=== PATIENT | female | born 1950 | race Caucasian/White ===

== ENCOUNTER 2019-11-09 09:27 | Observation (INO) | payer MEDICARE ==
[2019-11-09] MEDS ORDERED: NITROGLYCERIN SL TABS 0.4 MG TAB SUBLINGUAL STA (09:31)
--- NOTE | 2019-11-09 09:34 | ED ---
Chest Pain HPI - General Stated Complaint: Chest Pain Time Seen by Provider: 11/09/19 09:27 Source: patient, RN notes reviewed - History of Present Illness Initial Comments: This is a 69-year-old female with a history of PACs and PVCs no other known cardiac disease also a history of a malformation the right subclavian vein who states she had the onset around 7 AM this morning of 4/10 retrosternal chest pain with some radiation to the left arm. The patient states it currently is around 2/10 she did take 324 mg aspirin. She did go to [facility]. He was sent here by EMS for further evaluation. She was also EKG have frequent PVCs. She states she has some exertional dyspnea. No fevers chills nausea vomiting sweats. MD Complaint: chest pain - Related Data Allergies Allergy/AdvReac Type Severity Reaction Status Date / Time clarithromycin [From Biaxin] Allergy Nausea Verified 11/09/19 09:34 Sulfa (Sulfonamide Allergy Unknown Verified 11/09/19 09:34 Antibiotics) Review of Systems ROS Statement: Those systems with pertinent positive or pertinent negative responses have been documented in the HPI. ROS Other: All systems not noted in ROS Statement are negative. General Exam - General Exam Comments Initial Comments: This is a well-developed well-nourished awake alert oriented 3 female General appearance: alert, in no apparent distress Head exam: Present: atraumatic, normocephalic, normal inspection Eye exam: Present: normal appearance, PERRL, EOMI. Absent: scleral icterus, conjunctival injection, periorbital swelling ENT exam: Present: normal exam, mucous membranes moist Neck exam: Present: normal inspection. Absent: tenderness, meningismus, lymphadenopathy Respiratory exam: Present: normal lung sounds bilaterally. Absent: respiratory distress, wheezes, rales, rhonchi, stridor Cardiovascular Exam: Present: regular rate, normal rhythm, normal heart sounds. Absent: systolic murmur, diastolic murmur, rubs, gallop, clicks GI/Abdominal exam: Present: soft, normal bowel sounds. Absent: distended, tenderness, guarding, rebound, rigid Extremities exam: Present: normal inspection, full ROM, normal capillary refill. Absent: tenderness, pedal edema, joint swelling, calf tenderness Back exam: Present: normal inspection Neurological exam: Present: alert, oriented X3, CN II-XII intact Psychiatric exam: Present: normal affect, normal mood Skin exam: Present: warm, dry, intact, normal color. Absent: rash Course Vital Signs 11/09/19 11/09/19 09:29 10:25 Temperature 98.3 F Pulse Rate 74 65 Respiratory 18 18 Rate Blood Pressure 174/95 152/81 O2 Sat by Pulse 99 100 Oximetry Chest Pain MDM - MDM I did reevaluate patient several occasions she is currently pain-free. Nitroglycerin did help. She did state that the pain came back however briefly after nitro was given. We did a long discussion patient be admitted for inpatient evaluation of suspected new onset angina. I did discuss case with Dr. Montaño Critical Care Time Critical Care Time: Yes Total Critical Care Time: 31 Critical Care Time: 31 minutes of critical care time which includes initial presentation with history physical labs x-rays several reevaluation the patient response to therapy discussion with the patient regarding findings discussed with the admitting physician admission orders and documentation of the above Disposition Clinical Impression: Chest pain, Acute coronary syndrome Disposition: ADMITTED IP TO THIS [facility] Condition: Fair Referrals: None,Stated [Primary Care Provider] - 1-2 days
[2019-11-09 09:57] LABS: Basophils % (A) 1 %; Eosinophils # (A) 0.3 k/uL (0-0.7); Eosinophils % (A) 5 %; HCT 43.8 % (34.0-46.0); HGB 14.4 gm/dL (11.4-16.0); Lymphocytes # (A) 1.4 k/uL (1.0-4.8); Lymphocytes % (A) 22 %; MCH 30.3 pg (25.0-35.0); MCHC 32.8 g/dL (31.0-37.0); MCV 92.3 fL (80.0-100.0); Mean Platelet Volume 8.8; Monocytes # (A) 0.4 k/uL (0-1.0); Monocytes % (A) 7 %; Neutrophils # (A) 4.2 k/uL (1.3-7.7); Neutrophils % (A) 65 %; Platelet Count 189 k/uL (150-450); RBC 4.75 m/uL (3.80-5.40); RDW 12.6 % (11.5-15.5); WBC 6.4 k/uL (3.8-10.6)
--- NOTE | 2019-11-09 10:07 | XR ---
EXAMINATION TYPE: XR chest 2V DATE OF EXAM: 11/09/2019 COMPARISON: NONE HISTORY: Shortness of breath TECHNIQUE: Frontal and lateral views of the chest are obtained. FINDINGS: Scattered senescent parenchymal changes noted. Hyperinflation compatible with COPD. No evidence for infiltrate. No evidence for atelectasis. Heart size is stable. Mediastinal structures are stable and grossly unremarkable. No evidence for hilar prominence. Degenerative changes dorsal spine. IMPRESSION: 1. No evidence for acute pulmonary disease.
[2019-11-09 10:17] LABS: ALT 17 U/L (4-34); AST 29 U/L (14-36); African American GFR (CKD) >90 (>60 ml/min/1.73 sqM); Albumin 4.1 g/dL (3.5-5.0); Alkaline Phosphatase 65 U/L (38-126); Anion Gap 7 mmol/L; Blood Urea Nitrogen 16 mg/dL (7-17); Calcium 9.6 mg/dL (8.4-10.2); Carbon Dioxide 23 mmol/L (22-30); Chloride 108 mmol/L (98-107); Creatine Kinase 41 U/L (30-135); Glucose 169 mg/dL (74-99); Magnesium 1.8 mg/dL (1.6-2.3); Non-African American GFR(CKD) >90 (>60 ml/min/1.73 sqM); Potassium 4.2 mmol/L (3.5-5.1); Sodium 138 mmol/L (137-145); Total Bilirubin 0.4 mg/dL (0.2-1.3); Total Protein 6.4 g/dL (6.3-8.2)
[2019-11-09 10:18] LABS: D-Dimer 0.54 mg/L FEU (<0.60); Partial Thromboplastin Time 22.1 sec (22.0-30.0); Prothrombin Time 10.3 sec (9.0-12.0)
[2019-11-09] MEDS ORDERED: HEPARIN SODIUM,PORCINE 5,000 UNIT/ML 1 ML VIAL IV ONE (10:50)
[2019-11-09] MEDS ORDERED: NITROGLYCERIN SL TABS 0.4 MG TAB SUBLINGUAL PRN (10:50)
--- NOTE | 2019-11-09 10:56 | ED ---
Medical Decision Making - Lab Data Result diagrams: 11/09/19 09:42 11/09/19 09:42 Lab Results 11/09/19 11/09/19 11/09/19 Range/Units 09:42 09:42 09:42 WBC 6.4 (3.8-10.6) k/uL RBC 4.75 (3.80-5.40) m/uL Hgb 14.4 (11.4-16.0) gm/dL Hct 43.8 (34.0-46.0) % MCV 92.3 (80.0-100.0) fL MCH 30.3 (25.0-35.0) pg MCHC 32.8 (31.0-37.0) g/dL RDW 12.6 (11.5-15.5) % Plt Count 189 (150-450) k/uL Neutrophils % 65 % Lymphocytes % 22 % Monocytes % 7 % Eosinophils % 5 % Basophils % 1 % Neutrophils # 4.2 (1.3-7.7) k/uL Lymphocytes # 1.4 (1.0-4.8) k/uL Monocytes # 0.4 (0-1.0) k/uL Eosinophils # 0.3 (0-0.7) k/uL Basophils # 0.0 (0-0.2) k/uL PT 10.3 (9.0-12.0) sec INR 1.0 (<1.2) APTT 22.1 (22.0-30.0) sec D-Dimer 0.54 (<0.60) mg/L FEU Sodium 138 (137-145) mmol/L Potassium 4.2 (3.5-5.1) mmol/L Chloride 108 H (98-107) mmol/L Carbon Dioxide 23 (22-30) mmol/L Anion Gap 7 mmol/L BUN 16 (7-17) mg/dL Creatinine 0.47 L (0.52-1.04) mg/dL Est GFR (CKD-EPI)AfAm >90 (>60 ml/min/1.73 sqM) Est GFR (CKD-EPI)NonAf >90 (>60 ml/min/1.73 sqM) Glucose 169 H (74-99) mg/dL Calcium 9.6 (8.4-10.2) mg/dL Magnesium 1.8 (1.6-2.3) mg/dL Total Bilirubin 0.4 (0.2-1.3) mg/dL AST 29 (14-36) U/L ALT 17 (4-34) U/L Alkaline Phosphatase 65 (38-126) U/L Creatine Kinase 41 (30-135) U/L Troponin I (0.000-0.034) ng/mL NT-Pro-B Natriuret Pep pg/mL Total Protein 6.4 (6.3-8.2) g/dL Albumin 4.1 (3.5-5.0) g/dL 11/09/19 11/09/19 Range/Units 09:42 09:42 WBC (3.8-10.6) k/uL RBC (3.80-5.40) m/uL Hgb (11.4-16.0) gm/dL Hct (34.0-46.0) % MCV (80.0-100.0) fL MCH (25.0-35.0) pg MCHC (31.0-37.0) g/dL RDW (11.5-15.5) % Plt Count (150-450) k/uL Neutrophils % % Lymphocytes % % Monocytes % % Eosinophils % % Basophils % % Neutrophils # (1.3-7.7) k/uL Lymphocytes # (1.0-4.8) k/uL Monocytes # (0-1.0) k/uL Eosinophils # (0-0.7) k/uL Basophils # (0-0.2) k/uL PT (9.0-12.0) sec INR (<1.2) APTT (22.0-30.0) sec D-Dimer (<0.60) mg/L FEU Sodium (137-145) mmol/L Potassium (3.5-5.1) mmol/L Chloride (98-107) mmol/L Carbon Dioxide (22-30) mmol/L Anion Gap mmol/L BUN (7-17) mg/dL Creatinine (0.52-1.04) mg/dL Est GFR (CKD-EPI)AfAm (>60 ml/min/1.73 sqM) Est GFR (CKD-EPI)NonAf (>60 ml/min/1.73 sqM) Glucose (74-99) mg/dL Calcium (8.4-10.2) mg/dL Magnesium (1.6-2.3) mg/dL Total Bilirubin (0.2-1.3) mg/dL AST (14-36) U/L ALT (4-34) U/L Alkaline Phosphatase (38-126) U/L Creatine Kinase (30-135) U/L Troponin I <0.012 (0.000-0.034) ng/mL NT-Pro-B Natriuret Pep 527 pg/mL Total Protein (6.3-8.2) g/dL Albumin (3.5-5.0) g/dL Disposition Clinical Impression: Chest pain, Acute coronary syndrome, PVCs (premature ventricular contractions) Disposition: ADMITTED IP TO THIS HOSP Condition: Fair Referrals: None,Stated [Primary Care Provider] - 1-2 days
[2019-11-09] MEDS: HEPARIN SOD,PORK IN 0.45% NACL 25,000 UNIT in 0.45% NACL 1 250ML.BAG IV SCH (11:10)
[2019-11-09] MEDS ORDERED: PNEUMOCOCCAL VACC-PNEUMOVAX 23 25 MCG/0.5 ML VIAL IM ONE (11:54)
[2019-11-09] MEDS: NITROGLYCERIN OINT 1 INCH/GM PACKET TOPICAL SCH ×3 (12:54→23:58)
[2019-11-09] MEDS: INSULIN ASPART (NovoLOG) 100 UNIT/ML VIAL SQ SCH ×3 (12:58→20:51)
[2019-11-09 12:59] LABS: Glucose,Whole Blood 127 mg/dL (75-99)
[2019-11-09 13:19] LABS: Cholesterol 211 mg/dL (<200); HDL Cholesterol 41 mg/dL (40-60); LDL Cholesterol,Calculated 119 mg/dL (0-99); Triglycerides 253 mg/dL (<150)
--- NOTE | 2019-11-09 14:24 | CONS ---
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 Yesterday, she had some dizziness, she checked her pulse and there was some irregularity. She thought it is be a seizure. She took an extra beta donovan. This morning she had the same feeling and then she had some discomfort, left-sided chest radiating to the neck. The discomfort was mild and she was mildly dyspneic and went to [facility] and subsequently to the emergency room, was noted to have PVCs. The patient has a prior history of PVCs. She has underwent 2 cardiac catheterization most recently about 10 years ago that showed no evidence of obstructive coronary disease and no history of heart failure. She is more active physically, walks, has mild dyspnea with going up the stairs but not walking on a flat service. She has no chest discomfort with activity. She has occasional peripheral edema. No significant palpitation and no syncope. She has a remote history of smoking. She is nondiabetic. She has hypertension. She has borderline hyperlipidemia according to her. REVIEW OF SYSTEMS: RESPIRATORY SYSTEM: She has no documented history of asthma, emphysema or chronic bronchitis. GI SYSTEM: She has hemorrhoids with occasional bleeding. SYSTEM: No dysuria or hematuria. NERVOUS SYSTEM: No stroke or seizure. SOCIAL HISTORY: She does not consume caffeine and she is a nonsmoker. PHYSICAL EXAMINATION: A 69-year-old female, alert, oriented, in no apparent distress. Blood pressure running in the 140s/80 with a heart rate in the 60s. HEAD: Normocephalic. EYES: Sclerae nonicteric. NECK: Good upstroke, no bruit, no jugular venous distention. LUNGS: Clear to auscultation. HEART: Regular rate and rhythm, S1, S2. No S3 with systolic murmur at the base. No diastolic murmur, no rub. ABDOMEN: Soft, obese, nontender. Positive bowel sounds, no organomegaly. EXTREMITIES: No edema, intact distal pulses. LAB DATA: Revealed troponin less than 0.012. NT proBNP of 527, BUN and creatinine 16 and 0.47, hemoglobin 14.4. EKG revealed a sinus mechanism with normal axis and intervals with frequent ventricular ectopic activity. Chest x-ray shows no evidence of infiltrate. IMPRESSION: 1. Chest discomfort of unclear etiology, could be related to angina pectoris. Patient has no prior documented history of coronary artery disease. 2. History of arrhythmia with PACs and PVCs in the past. 3. History of hypertension. 4. Borderline hyperlipidemia. RECOMMENDATION: I will obtain serial enzymes and EKG. I will obtain an echocardiogram with Doppler. Depending on her findings, she may require cardiac catheterization. I have discussed with her those finding and recommendation. She is in full understanding and agreement. Thank you for this consult. Will follow with you. VERONICA / IJN: [id number] /
[2019-11-09] MEDS ORDERED: NALOXONE 0.4 MG/ML 1 ML VIAL IV PRN (15:30)
--- NOTE | 2019-11-09 15:43 | P.HPIM ---
History of Present Illness H&P Date: 11/09/19 69-year-old female with PMH of diet-controlled diabetes mellitus and hypertension presents to the ED for lightheadedness and chest pain. Patient states that she had one episode of diaphoresis yesterday that spontaneously resolved. This morning, she was doing laundry when she "felt weird". Patient states that she felt some skipped beats and started feeling lightheadedness, diaphoretic along with chest pain that was radiating to the left arm. This is also associated with some shortness of breath. Patient states that she is usually able to walk 4-600 feet without any difficulties. She denies any orthopnea. Her chest pain is rated as a 3-4 out of 10 in severity and described as a dull ache. His prompted her to come to the ED. She denies any headache, lower extremity edema, nausea or vomiting, fever or chills, cough, changes in urination or bowel habits. No changes in appetite or weight. She denies any numbness/weakness/tingling of the extremities. In the ED, her vital signs were stable. CBC was unremarkable. D-dimer was negative. CMP showed chloride of 108, creatinine 0.47, glucose 169. Troponin was less than 0.012 with EKG showing sinus rhythm with PVCs. BNP was 527. Lipid panel shows total cholesterol 211, LDL of 119 and triglyceride of 253. Patient was started on heparin drip and admitted for chest pain, rule out acute coronary syndrome with cardiology on consult. Review of Systems Pertinent positives and negatives as discussed in HPI, a complete review of systems was performed and all other systems are negative. Past Medical History Past Medical History: Diabetes Mellitus, Eye Disorder, GERD/Reflux, Hypertension, Osteoarthritis (OA), Vascular Disorder Additional Past Medical History / Comment(s): PACs, PVCs, R subclavian vein ma lformation, NIDDM diet controlled, arthritis in feet/thumbs, prolapsed bladder/rectum, past IBS years ago, constipation, stress incontinence, UTI, acute narrow angle glaucoma bilaterally. History of Any Multi-Drug Resistant Organisms: None Reported Past Surgical History: Heart Catheterization, Hysterectomy, Joint Replacement, Orthopedic Surgery, Tubal Ligation Additional Past Surgical History / Comment(s): Repair R foot arthritis deformity, R ACL injury with surgery, R knee hardware as well as R foot hardware, total R hip arthroplasty, D&C,. bilateral laser eye surgery for glaucoma, bilateral cataract removals/lens implants, colonoscopy. Past Anesthesia/Blood Transfusion Reactions: No Reported Reaction Past Psychological History: Depression Additional Psychological History / Comment(s): Pt resides in [place]. 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 Currently in [place] visiting her brett. She has a glucometer. Smoking Status: Former smoker Past Alcohol Use History: Rare Additional Past Alcohol Use History / Comment(s): Pt started smoking about 1968 and quit once for 35 yrs then resumed and has quit again 15 yrs ago Past Drug Use History: None Reported - Past Family History Mother Family Medical History: Chest Pain / Angina, Diabetes Mellitus, Hypertension Father Family Medical History: Musculoskeletal Disorder, Neurologic Disorder Additional Family Medical History / Comment(s): Parkinson's dx. Medications and Allergies Home Medications Medication Instructions Recorded Confirmed Type Acetaminophen [Tylenol Extra 500 mg PO HS PRN 11/09/19 11/09/19 History Strength] Aspirin 325 mg PO DAILY 11/09/19 11/09/19 History Cholecalciferol [Vitamin D3 (25 1,000 unit PO DAILY 11/09/19 11/09/19 History Mcg = 1000 Iu)] Cyanocobalamin/Cobamamide [Vitamin 1 tab SL DAILY 11/09/19 11/09/19 History B-12 5,000 Mcg Tab Sl] Fluticasone Nasal [place] [Flonase 1 spray EA NOSTRIL BID 11/09/19 11/09/19 History Nasal [place]] Ibuprofen [Motrin Ib] 400 mg PO DAILY PRN 11/09/19 11/09/19 History Loratadine [Claritin] 10 mg PO DAILY 11/09/19 11/09/19 History Metoprolol Tartrate [Lopressor] 25 mg PO BID 11/09/19 11/09/19 History Propylene Glycol/Peg 400/Pf 1 drop BOTH EYES BID PRN 11/09/19 11/09/19 History [Systane 0.3-0.4% Eye Drops] Pyridoxine HCl (Vitamin B6) 100 mg PO HS 11/09/19 11/09/19 History [Vitamin B-6] Vitamin E 400 unit PO MOWEFR 11/09/19 11/09/19 History diphenhydrAMINE HCL [Benadryl] 25 mg PO HS 11/09/19 11/09/19 History lisinopriL 20 mg PO BID 11/09/19 11/09/19 History tiZANidine [Zanaflex] 1 mg PO HS 11/09/19 11/09/19 History Allergies Allergy/AdvReac Type Severity Reaction Status Date / Time clarithromycin [From Biaxin] Allergy Nausea Verified 11/09/19 11:12 Sulfa (Sulfonamide Allergy Unknown Verified 11/09/19 11:12 Antibiotics) Physical Exam Vitals: Vital Signs Temp Pulse Pulse Resp BP BP Pulse Ox 11/09/19 15:00 98.0 F 70 18 146/76 95 11/09/19 12:01 98.2 F 69 18 141/82 98 11/09/19 11:14 98 F 68 18 149/72 98 11/09/19 10:25 65 18 152/81 100 11/09/19 09:29 98.3 F 74 18 174/95 99 Intake and Output 11/09/19 11/09/19 11/09/19 06:59 14:59 22:59 Intake Total 0 Balance 0 Intake: Oral 0 Other: Weight 115.212 kg General: [non toxic], [no distress], [appears at stated age] Derm: [warm], [dry] Head: [atraumatic], [normocephalic], [symmetric] Eyes: [EOMI], [no lid lag], [anicteric sclera] Mouth: [no lip lesion], [mucus membranes moist] Cardiovascular: [S1S2 reg with skipped beats], [no murmur], [positive DP pulse bilateral], Lungs: [CTA bilateral], [no rhonchi, no rales] , [no accessory muscle use] Abdominal: [soft], [ nontender to palpation], [no guarding], [no appreciable organomegaly] Ext: [no gross muscle atrophy], [1+ pitting lower extremity edema], [no contractures] Neuro: [ CN II-XI grossly intact], [no focal neuro deficits] Psych: [Alert], [oriented], [appropriate affect] Results CBC & Chem 7: 11/09/19 09:42 11/09/19 09:42 Labs: Abnormal Lab Results - Last 24 Hours (Table) 08/11/09/19 11/09/19 Range/Units 09:42 09:42 12:57 Chloride 108 H (98-107) mmol/L Creatinine 0.47 L (0.52-1.04) mg/dL Glucose 169 H (74-99) mg/dL POC Glucose (mg/dL) 127 H (75-99) mg/dL Triglycerides 253 H (<150) mg/dL Cholesterol 211 H (<200) mg/dL LDL Cholesterol, Calc 119 H (0-99) mg/dL Thrombosis Risk Factor Assmnt - Choose All That Apply Any of the Below Risk Factors Present?: Yes Each Factor Represents 1 point: Obesity (BMI >25) Other Risk Factors: Yes Each Risk Factor Represents 2 Points: Age 61-74 years Other congenital or acquired thrombophilia - If yes, enter type in comment: No Thrombosis Risk Factor Assessment Total Risk Factor Score: 3 Thrombosis Risk Factor Assessment Level: Moderate Risk Assessment and Plan Assessment: Chest pain with typical features Lightheadedness Frequent PVCs Dyslipidemia Hypertension Diabetes mellitus Her troponin has been less than 0.0122 with EKG showing sinus rhythm with freq uent PVCs. Acute coronary syndrome has been ruled out. Plans: Obtain echocardiogram. Telemetry monitoring. Continue heparin drip. Restart metoprolol. Restart aspirin. She will likely need additional testing. Follow cardiology consultation. Plans: Follow orthostats. Follow-up echocardiogram. Telemetry monitoring. Follow carotid duplex. Plans: Continue metoprolol. Telemetry monitoring. 2 g magnesium 1. Plans: Start Lipitor. Plans: Restart metoprolol and lisinopril. Monitor vitals, adjust medications if necessary. Fsyvo-ml-pzce glucose 127. Plans: Insulin sliding scale. Regular exercise. Hypoglycemic precautions. Follow A1c. DVT prophylaxis: [Heparin drip] Discussed with: [Patient] Anticipated discharge: [1-2 days] Anticipated discharge place: [Home] A total of [35] minutes was spent on the care of this complex patient more than 50% of the time was spent in counseling and care coordination. Patient will be full code.
[2019-11-09] MEDS: MAGNESIUM SULFATE-D5W PMX 1 GM in DEXTROSE/WATER 1 100ML.BAG IVPB SCH ×2 (16:02→17:35)
[2019-11-09] MEDS: ACETAMINOPHEN TAB 325 MG TAB PO PRN ×2 (16:09→20:40)
--- NOTE | 2019-11-09 16:15 | US ---
EXAMINATION TYPE: US carotid duplex BILAT DATE OF EXAM: 11/09/2019 COMPARISON: NONE CLINICAL HISTORY: dizziness. EXAM MEASUREMENTS: RIGHT: Peak Systolic Velocity (PSV) cm/sec ----- Right CCA: 64.2 ----- Right ICA: 80.5 ----- Right ECA: 77.0 ICA/CCA ratio: 1.3 RIGHT: End Diastole cm/sec ----- Right CCA: 18.0 ----- Right ICA: 20.3 ----- Right ECA: 0.0 LEFT: Peak Systolic Velocity (PSV) cm/sec ----- Left CCA: 70.9 ----- Left ICA: 74.3 ----- Left ECA: 74.3 ICA/CCA ratio: 1.0 LEFT: End Diastole cm/sec ----- Left CCA: 17.7 ----- Left ICA: 34.9 ----- Left ECA: 0.0 VERTEBRALS (direction of flow): Right Vertebral: Antegrade Left Vertebral: Antegrade Rhythm: Normal [place]os scale images show no significant focal plaque carotid bulb level bilaterally. Velocity measureme nts and ratios remain within normal limits in the visualized portions of both internal carotid arteri es. IMPRESSION: No hemodynamically significant stenosis seen in either internal carotid artery. Criteria for Assigning % of Stenosis / Diameter reduction (Estimation based on the indirect measurements of the internal carotid artery velocities (ICA PSV). 1. Normal (no stenosis)=ICA PSV < 125 cm/s: ratio < 2.0: ICA EDV<40 cm/s. 2. Less than 50% stenosis=ICA PSV < 125 cm/s: ratio < 2.0: ICA EDV<40 cm/s. 3. 50 to 69% stenosis=ICA PSV of 125 to 230 cm/s: ration 2.0 ? 4.0: ICA EDV 40-100 cm/s. 4. Greater than 70% stenosis to near occlusion= ICA PSV > 230 cm/s: ratio > 4.0: ICA EDV > 100 cm/s. 5. Near occlusion= ICA PSV velocities may be low or undetectable: variable ratio and ICA EDV. 6. Total occlusion=unable to detect flow.
[2019-11-09 16:32] LABS: Glucose,Whole Blood 138 mg/dL (75-99)
[2019-11-09] MEDS ORDERED: HEPARIN SODIUM,PORCINE 5,000 UNIT/ML 1 ML VIAL IV PRN (18:23)
[2019-11-09] MEDS ORDERED: diphenhydrAMINE 25 MG CAP PO PRN (19:56)
[2019-11-09] MEDS: METOPROLOL TARTRATE 25 MG TAB PO SCH (20:39)
[2019-11-09] MEDS: lisinopriL 20 MG TAB PO SCH (20:40)
[2019-11-09 20:52] LABS: Glucose,Whole Blood 136 mg/dL (75-99)
[2019-11-09] MEDS ORDERED: ATORVASTATIN 40 MG TAB PO SCH (21:00)
[2019-11-09] MEDS ORDERED: PYRIDOXINE 50 MG TAB PO SCH (21:00)
[2019-11-09] MEDS ORDERED: tiZANidine 4 MG TAB PO SCH (21:00)
[2019-11-09 23:54] LABS: Glucose,Whole Blood 168 mg/dL (75-99)
[2019-11-10 01:21] LABS: Hemoglobin A1C 6.7 % (4.0-6.0)
[2019-11-10 06:19] LABS: Glucose,Whole Blood 135 mg/dL (75-99)
[2019-11-10] MEDS: INSULIN ASPART (NovoLOG) 100 UNIT/ML VIAL SQ SCH ×3 (06:19→16:44)
[2019-11-10] MEDS: NITROGLYCERIN OINT 1 INCH/GM PACKET TOPICAL SCH (06:21)
[2019-11-10] MEDS: ACETAMINOPHEN TAB 325 MG TAB PO PRN ×2 (06:45→13:24)
[2019-11-10 07:47] LABS: African American GFR (CKD) >90 (>60 ml/min/1.73 sqM); Anion Gap 5 mmol/L; Blood Urea Nitrogen 16 mg/dL (7-17); Calcium 8.9 mg/dL (8.4-10.2); Carbon Dioxide 28 mmol/L (22-30); Chloride 107 mmol/L (98-107); Cholesterol 210 mg/dL (<200); Glucose 132 mg/dL (74-99); HDL Cholesterol 48 mg/dL (40-60); LDL Cholesterol,Calculated 118 mg/dL (0-99); Magnesium 1.9 mg/dL (1.6-2.3); Non-African American GFR(CKD) >90 (>60 ml/min/1.73 sqM); Potassium 4.4 mmol/L (3.5-5.1); Sodium 140 mmol/L (137-145); Triglycerides 222 mg/dL (<150)
[2019-11-10 08:10] VITALS: RESP 16
[2019-11-10] MEDS ORDERED: ALPRAZolam 0.5 MG TAB PO PRN (08:52)
[2019-11-10] MEDS ORDERED: NITROGLYCERIN SL TABS 0.4 MG TAB SUBLINGUAL PRN (08:52)
[2019-11-10] MEDS ORDERED: SODIUM CHLORIDE 0.9% 1,000 ML in EMPTY BAG 1 BAG IV ONE (08:52)
[2019-11-10] MEDS ORDERED: ALPRAZolam 0.25 MG TAB PO PRN (08:52)
[2019-11-10] MEDS ORDERED: ASPIRIN 325 MG TAB PO STA (08:52)
[2019-11-10] MEDS ORDERED: ATORVASTATIN 80 MG TAB PO STA (08:52)
[2019-11-10] MEDS ORDERED: ASPIRIN 81 MG PO SCH (09:00)
[2019-11-10] MEDS ORDERED: ASPIRIN 325 MG TAB PO SCH (09:00)
[2019-11-10] MEDS ORDERED: CHOLECALCIFEROL 1,000 UNIT TAB PO SCH (09:00)
[2019-11-10] MEDS ORDERED: LORATADINE 10 MG TAB PO SCH (09:00)
[2019-11-10] MEDS: METOPROLOL TARTRATE 25 MG TAB PO SCH (09:25)
[2019-11-10] MEDS: lisinopriL 20 MG TAB PO SCH (09:25)
--- NOTE | 2019-11-10 09:57 | ECHOF ---
Referral Reason:cp MEASUREMENTS -------- HEIGHT: 162.6 cm WEIGHT: 115.2 kg BP: IVSd: 1.2 cm (0.6 - 1.1) LVIDd: 5.0 cm (3.9 - 5.3) LVPWd: 1.3 cm (0.6 - 1.1) IVSs: 1.5 cm LVIDs: 3.6 cm LVPWs: 1.4 cm LA Diam: 4.9 cm (2.7 - 3.8) LAESV Index (A-L): 36.44 ml/m Ao Diam: 3.6 cm (2.0 - 3.7) AV Cusp: 2.0 cm (1.5 - 2.6) MV EXCURSION: 12.538 mm (> 18.000) MV EF SLOPE: 55 mm/s (70 - 150) EPSS: 0.4 cm MV E Marco: 0.75 m/s MV DecT: 266 ms MV A Marco: 1.15 m/s MV E/A Ratio: 0.65 RAP: 5.00 mmHg RVSP: 17.89 mmHg FINDINGS -------- Sinus rhythm. This was a technically adequate study. The left ventricular size is normal. There is mild concentric left ventricular hypertrophy. Overa ll left ventricular systolic function is normal with, an EF between 55 - 60 %. The right ventricle is normal in size. LA is moderately dilated 34-39 ml/m2 The right atrial size is normal. The aortic valve is trileaflet, and appears structurally normal. No aortic stenosis or regurgitation. The mitral valve is normal. Mild mitral regurgitation is present. The tricuspid valve appears structurally normal. Mild tricuspid regurgitation present. Right vent ricular systolic pressure is normal at < 35 mmHg. The pulmonic valve was not well visualized. There is no pulmonic regurgitation present. The aortic root size is normal. Echo free space represents a pericardial fat pad. CONCLUSIONS -------- 1. There is mild concentric left ventricular hypertrophy. 2. Overall left ventricular systolic function is normal with, an EF between 55 - 60 %. 3. LA is moderately dilated 34-39 ml/m2 4. The aortic valve is trileaflet, and appears structurally normal. No aortic stenosis or regurgitati on. 5. Mild mitral regurgitation is present. 6. Mild tricuspid regurgitation present. 7. Echo free space represents a pericardial fat pad. PRN PHYSICAL THERAPIST: Johanna Navas RDCS
[2019-11-10] MEDS: HEPARIN SOD,PORK IN 0.45% NACL 25,000 UNIT in 0.45% NACL 1 250ML.BAG IV SCH (10:58)
[2019-11-10 11:06] LABS: Glucose,Whole Blood 137 mg/dL (75-99)
[2019-11-10] MEDS ORDERED: LIDOCAINE 1% INJ 10MG/ML (20 ML MDV) ONE (12:03)
[2019-11-10] MEDS ORDERED: VERAPAMIL 2.5 MG/ML 2 ML AMP ONE (12:03)
[2019-11-10] MEDS ORDERED: fentaNYL (PF) 50 MCG/ML 2 ML AMP ONE (12:04)
[2019-11-10] MEDS ORDERED: IV FLUID CONTINUATION 1,000 ML IV ONE (12:10)
[2019-11-10] MEDS ORDERED: fentaNYL (PF) 50 MCG/ML 2 ML AMP IVP ONE (12:26)
[2019-11-10] MEDS ORDERED: LIDOCAINE 1% INJ 10MG/ML (20 ML MDV) SQ ONE (12:29)
[2019-11-10] MEDS: VERAPAMIL SYRINGE (5 MG/10 ML) INTRAARTER ONE ×2 (12:32→12:45)
[2019-11-10] MEDS ORDERED: HEPARIN SODIUM 1,000 UN/ML (10ML VL) IV ONE (12:39)
[2019-11-10] MEDS ORDERED: MIDAZOLAM 2 MG/2 ML VIAL IVP ONE (12:41)
[2019-11-10] MEDS ORDERED: IOPAMIDOL-370 100ML BTL INJ ONE (12:47)
[2019-11-10] MEDS ORDERED: RX INFO: IV CONTRAST WAS GIVEN 1 EACH MISC MISCELLANE PRN (13:00)
[2019-11-10] MEDS ORDERED: SODIUM CHLORIDE 0.9% 1,000 ML IV SCH (13:00)
[2019-11-10 13:11] VITALS: TEMP 97.9
--- NOTE | 2019-11-10 14:29 | P.PN ---
Subjective Progress Note Date: 11/10/19 Patient is doing fairly well today. She denies any chest pain. She is still having frequent PVCs on the monitor. No palpitation or heart pounding. Objective - Vital Signs Vital signs: Vital Signs Temp 97.9 F 11/10/19 13:01 Pulse 76 11/10/19 14:16 Resp 16 11/10/19 14:16 BP 139/69 11/10/19 14:16 Pulse Ox 97 11/10/19 14:16 Intake & Output 11/09/19 11/10/19 11/10/19 18:59 06:59 18:59 Intake Total 70.667 73.625 595 Output Total 700 Balance 70.667 -626.375 595 Weight 115.212 kg 115.212 kg Intake: IV 250 Intake, IV Titration 70.667 73.625 345 Amount Heparin Sod,Pork in 0.45% 70.667 73.625 NaCl 25,000 unit In 0.45 % NaCl 1 250ml.bag @ 8.68 UNITS/KG/HR 10 mls/hr IV .Q24H [facility] Rx#:[id number] Sodium Chloride 0.9% 1, 345 000 ml In Empty Bag 1 bag @ 1 ML/KG/HR 115.212 mls /hr IV .[id number] [facility] Rx#: [id number] Oral 0 0 Output: Urine 700 Other: Voiding Method Toilet # Voids 1 - Exam General: The patient is awake and alert, in no distress Eye: there is normal conjunctiva bilaterally. Neck: The neck is supple, there is no JVD. Cardiovascular: Normal S1-S2, no S3-S4, no murmurs. Respiratory: Lungs clear to auscultation bilaterally Gastrointestinal: Abdomen is soft, nontender Musculoskeletal: There is no pedal edema. Neurological:. Speech is normal. Skin: Skin is warm and dry - Labs CBC & Chem 7: 11/09/19 09:42 11/10/19 06:25 Labs: Abnormal Lab Results - Last 24 Hours (Table) 11/09/19 11/09/19 11/09/19 Range/Units 16:31 16:39 16:39 APTT 42.6 H (22.0-30.0) sec Creatinine (0.52-1.04) mg/dL Glucose (74-99) mg/dL POC Glucose (mg/dL) 138 H (75-99) mg/dL Hemoglobin A1c 6.7 H (4.0-6.0) % Triglycerides (<150) mg/dL Cholesterol (<200) mg/dL LDL Cholesterol, Calc (0-99) mg/dL 11/09/19 11/09/19 11/09/19 Range/Units 20:50 23:42 23:53 APTT 68.4 H (22.0-30.0) sec Creatinine (0.52-1.04) mg/dL Glucose (74-99) mg/dL POC Glucose (mg/dL) 136 H 168 H (75-99) mg/dL Hemoglobin A1c (4.0-6.0) % Triglycerides (<150) mg/dL Cholesterol (<200) mg/dL LDL Cholesterol, Calc (0-99) mg/dL 11/10/19 11/10/19 11/10/19 Range/Units 06:18 06:25 06:25 APTT 47.6 H (22.0-30.0) sec Creatinine 0.51 L (0.52-1.04) mg/dL Glucose 132 H (74-99) mg/dL POC Glucose (mg/dL) 135 H (75-99) mg/dL Hemoglobin A1c (4.0-6.0) % Triglycerides 222 H (<150) mg/dL Cholesterol 210 H (<200) mg/dL LDL Cholesterol, Calc 118 H (0-99) mg/dL 11/10/19 Range/Units 11:05 APTT (22.0-30.0) sec Creatinine (0.52-1.04) mg/dL Glucose (74-99) mg/dL POC Glucose (mg/dL) 137 H (75-99) mg/dL Hemoglobin A1c (4.0-6.0) % Triglycerides (<150) mg/dL Cholesterol (<200) mg/dL LDL Cholesterol, Calc (0-99) mg/dL Assessment and Plan Assessment: This is a 69-year-old female with past medical history noted below who presented to the emergency room with lightheadedness and chest pain. Patient was evaluated in the ER and admitted to the hospital for further management of her medical problems noted below. 1. Chest pain with typical features: Twelve-lead EKG on presentation with no acute ischemic changes. Frequent PVCs noted. Troponin negative 2 sets. Patient was seen and evaluated by cardiology. Left heart catheterization awaiting report. Echocardiogram showed preserved ejection fraction with no significant valvular abnormalities. 2. Lightheadedness: May be attributed to frequent PVCs. Resume home dose of metoprolol. Orthostatic blood pressure checked and negative. Carotid Doppler no hemodynamically significant stenosis. 3. Dyslipidemia: Started on Lipitor 4. Hypertension: Blood pressure within acceptable range 5. Diabetes mellitus: Diet-controlled. A1c 6.7.
--- NOTE | 2019-11-10 16:28 | CC ---
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 Her cardiac enzymes revealed no evidence of myocardial infarction. Her EKG showed multiple PVCs. Her left ventricular systolic function was normal. I had a long discussion with the patient regarding the option of cardiac catheterization versus stress testing. Both options, advantage and disadvantage were discussed with her. Patient has favor proceeding with cardiac catheterization. The procedures, risks, and complication were discussed with the patient who is in full understanding and agreement. PROCEDURE: Patient was brought to mechanical laboratory technician in a fasting semi-sedated state after receiving fentanyl and Benadryl and achieving moderate conscious sedated state. Using Xylocaine anesthesia and Seldinger technique, a 6-[place] sheath was introduced in the left radial artery. Selective right and left coronary angiography performed using 5-[place] 4 bend right and left Jamarcus catheter, multiple views of the coronary artery including hemiaxial views were obtained. Following that, a 5-[place] tight pigtail catheter introduced into the left ventricle and pressures were calculated. Following that, catheter and sheath were removed. Hemostasis was obtained with deployment of a TR band. There was no immediate complication. Patient is returned to room in stable condition. FINDINGS: LEFT MAIN: This is a large-sized vessel, bifurcating into left circumflex, left anterior descending artery. Left main coronary artery has no evidence of high-grade stenosis. LEFT ANTERIOR DESCENDING ARTERY: This is a large-sized vessel, reaching toward the apex with a wraparound apex segment, giving rise to 3 diagonal branches. The 2nd and 3rd a large in caliber. The left anterior descending artery as well as branches have no evidence of obstructive coronary artery disease. LEFT CIRCUMFLEX: This is a nondominant vessel, large in caliber, giving rise to 2 obtuse marginal branches. The left circumflex as well as branches have no evidence of obstructive coronary artery disease. RIGHT CORONARY ARTERY: This is a large dominant vessel, bifurcating distally PDA and posterolateral segment and branches. The right coronary artery as well as branches have no evidence of obstructive coronary artery disease. LEFT VENTRICULOGRAM: Left ventriculogram was not performed. HEMODYNAMICS: There was no gradient across the aortic valve. The left ventricular end- diastolic pressure was 14 to 16 mmHg. CONCLUSION: 1. Normal coronary arteries. 2. Right dominance. RECOMMENDATION: In view of finding anatomy, I recommend continue medical therapy with aggressive risk modifications being initiated. Those findings and recommendation were discussed with the patient and her family who are in full understanding and agreement. Duration of the sedation is 24 minutes. MMODL / IJN: [id number] /
--- NOTE | 2019-11-10 16:35 | P.DS ---
Providers Date of admission: 11/09/19 10:50 Expected date of discharge: 11/10/19 Attending physician: Steph Montaño MD Consults: 11/09/19 10:50 Consult Physician Urgent Consulting Provider: Darrick Pavon Consult Reason/Comments: Chest pain Do you want consulting provider notified?: Yes Primary care physician: Stated None Hospital Course: This is a 69-year-old female with past medical history noted below who presented to the emergency room with lightheadedness and chest pain. Patient was evaluated in the ER and admitted to the hospital for further management of her medical problems noted below. 1. Chest pain with typical features: Twelve-lead EKG on presentation with no acute ischemic changes. Frequent PVCs noted. Troponin negative 2 sets. Patient was seen and evaluated by cardiology. Left heart catheterization with no significant coronary artery disease. Echocardiogram showed preserved ejection fraction with no significant valvular abnormalities. Patient was cleared by cardiology for discharge home. 2. Lightheadedness: May be attributed to frequent PVCs. Resume home dose of metoprolol. Orthostatic blood pressure checked and negative. Carotid Doppler no hemodynamically significant stenosis. 3. Dyslipidemia: Started on Lipitor 4. Hypertension: Blood pressure within acceptable range 5. Diabetes mellitus: Diet-controlled. A1c 6.7. Patient will be discharged home in a stable condition. For further details about this hospitalization please refer to the electronic chart. Patient Condition at Discharge: Fair Plan - Discharge Summary Discharge Rx Participant: No New Discharge Prescriptions: New Atorvastatin [Lipitor] 40 mg PO HS #30 tab Continue Loratadine [Claritin] 10 mg PO DAILY Ibuprofen [Motrin Ib] 400 mg PO DAILY PRN PRN Reason: Pain Vitamin E 400 unit PO MOWEFR Pyridoxine HCl (Vitamin B6) [Vitamin B-6] 100 mg PO HS Cholecalciferol [Vitamin D3 (25 Mcg = 1000 Iu)] 1,000 unit PO DAILY diphenhydrAMINE HCL [Benadryl] 25 mg PO HS Propylene Glycol/Peg 400/Pf [Systane 0.3-0.4% Eye Drop] 1 drop BOTH EYES BID PRN PRN Reason: Dry Eye(S) Fluticasone Nasal Nemacolin [Flonase Nasal Nemacolin] 1 spray EA NOSTRIL BID tiZANidine [Zanaflex] 1 mg PO HS lisinopriL 20 mg PO BID Aspirin 325 mg PO DAILY Metoprolol Tartrate [Lopressor] 25 mg PO BID Cyanocobalamin/Cobamamide [Vitamin B-12 5,000 Mcg Tab Sl] 1 tab SL DAILY Acetaminophen [Tylenol Extra Strength] 500 mg PO HS PRN PRN Reason: Pain Discharge Medication List Acetaminophen [Tylenol Extra Strength] 500 mg PO HS PRN 11/09/19 [History] Aspirin 325 mg PO DAILY 11/09/19 [History] Cholecalciferol [Vitamin D3 (25 Mcg = 1000 Iu)] 1,000 unit PO DAILY 11/09/19 [History] Cyanocobalamin/Cobamamide [Vitamin B-12 5,000 Mcg Tab Sl] 1 tab SL DAILY 11/09/19 [History] Fluticasone Nasal Nemacolin [Flonase Nasal Nemacolin] 1 spray EA NOSTRIL BID 11/09/19 [History] Ibuprofen [Motrin Ib] 400 mg PO DAILY PRN 11/09/19 [History] Loratadine [Claritin] 10 mg PO DAILY 11/09/19 [History] Metoprolol Tartrate [Lopressor] 25 mg PO BID 11/09/19 [History] Propylene Glycol/Peg 400/Pf [Systane 0.3-0.4% Eye Drop] 1 drop BOTH EYES BID PRN 11/09/19 [History] Pyridoxine HCl (Vitamin B6) [Vitamin B-6] 100 mg PO HS 11/09/19 [History] Vitamin E 400 unit PO MOWEFR 11/09/19 [History] diphenhydrAMINE HCL [Benadryl] 25 mg PO HS 11/09/19 [History] lisinopriL 20 mg PO BID 11/09/19 [History] tiZANidine [Zanaflex] 1 mg PO HS 11/09/19 [History] Atorvastatin [Lipitor] 40 mg PO HS #30 tab 11/10/19 [Rx] Follow up Appointment(s)/Referral(s): Pete Lord MD [STAFF PHYSICIAN] - 1 Week None,Stated [Primary Care Provider] - 1-2 days Discharge Disposition: HOME SELF-CARE
[2019-11-10 16:43] LABS: Glucose,Whole Blood 138 mg/dL (75-99)
[2019-11-10 17:06] VITALS: BP 154/90; PULSE 68
== END 2019-11-10 18:37 | disposition home or self-care (01) ==
LOC: EC 09:27 → 3NCARDOBS 10:50
PROVIDERS: ADMIT Family Medicine; ATTEND Family Medicine
DX: R07.89 Other chest pain (principal); R42 Dizziness and giddiness; R61 Generalized hyperhidrosis; R06.02 Shortness of breath; R06.00 Dyspnea, unspecified; R06.09 Other forms of dyspnea; E78.5 Hyperlipidemia, unspecified; I10 Essential (primary) hypertension; E11.9 Type 2 diabetes mellitus without complications; Z23 Encounter for immunization; I49.3 Ventricular premature depolarization; I49.1 Atrial premature depolarization; H04.129 Dry eye syndrome of unspecified lacrimal gland; M19.90 Unspecified osteoarthritis, unspecified site; M19.072 Primary osteoarthritis, left ankle and foot; M19.071 Primary osteoarthritis, right ankle and foot; M19.042 Primary osteoarthritis, left hand; M19.041 Primary osteoarthritis, right hand; K59.00 Constipation, unspecified; N39.3 Stress incontinence (female) (male); H40.213 Acute angle-closure glaucoma, bilateral; F32.9 Major depressive disorder, single episode, unspecified; E66.9 Obesity, unspecified; Z68.41 Body mass index [BMI] 40.0-44.9, adult; I24.9 Acute ischemic heart disease, unspecified; Z87.440 Personal history of urinary (tract) infections; Z90.710 Acquired absence of both cervix and uterus; Z87.891 Personal history of nicotine dependence; Z79.82 Long term (current) use of aspirin; Z79.899 Other long term (current) drug therapy; Z79.1 Long term (current) use of non-steroidal anti-inflammatories (NSAID); Z88.2 Allergy status to sulfonamides; Z88.1 Allergy status to other antibiotic agents; Z96.641 Presence of right artificial hip joint; Z82.49 Family history of ischemic heart disease and other diseases of the circulatory system; Z83.3 Family history of diabetes mellitus; Z82.0 Family history of epilepsy and other diseases of the nervous system
CPT/HCPCS: 93005 ×2; 96366 ×2; 96367; 96376 ×2; 96365; 99291; 36415; 93306; 93458; 85379; 83880; 80061 ×2; 80053; 80048; 82550; 83735 ×2; 84484; 85025; 85610; 85730 ×2; 83036; 71046; 93880; 90732; G0378 ×2; C1769 ×2; C1894; G0009; J2250; J1644 ×3; J2001; J3010; J3475; Q9967

== ENCOUNTER → 2022-05-30 | Outpatient (CLI) | payer MEDICARE ==
[2022-05-30 13:21] LABS: INR 1.1 (<1.2); Partial Thromboplastin Time 23.8 sec (22.0-30.0); Prothrombin Time 11.2 sec (9.0-12.0)
[2022-05-30 18:11] LABS: HCT 39.3 % (37.2-46.3); HGB 12.7 g/dL (12.0-15.0); MCH 30.2 pg (27.0-32.0); MCHC 32.3 g/dL (32.0-37.0); MCV 93.6 fL (80.0-97.0); Mean Platelet Volume 10.6 fL (9.5-12.2); NRBC Per 100 WBC 0 /100 WBCS (0.0-0.0); Platelet Count 281 X 10*3/uL (140-440); RDW 13.1 % (11.5-14.5); WBC 5.94 X 10*3/uL (4.50-10.00)
[2022-05-30 18:18] LABS: African American GFR (CKD) 108.5 (60.0-200.0); Albumin 4.3 g/dL (3.8-4.9); Albumin/Globulin Ratio 2.12 (1.60-3.17); Anion Gap 9.3 mmol/L (10.00-18.00); BUN/Creat Ratio 39.25 Ratio (12.00-20.00); Blood Urea Nitrogen 22.1 mg/dL (9.0-27.0); Non-African American GFR(CKD) 93.6 (60.0-200.0); Potassium 4.2 mmol/L (3.5-5.5); Total Bilirubin 0.4 mg/dL (0.30-1.20); Total Protein 6.4 g/dL (6.2-8.2)
[2022-05-30 18:58] LABS: Appearance,Urine Clear (Clear); Bilirubin,Urine Negative (Negative); Blood,Urine Negative (Negative); Color,Urine Yellow (Yellow); Ketones,Urine Negative (Negative); Nitrite,Urine Negative (Negative); Specific Gravity,Urine 1.023 (1.001-1.030); Urobilinogen,Urine 0.2 (0.2,1.0)
[2022-05-30 19:09] LABS: Bacteria,Urine None Seen /HPF (None Seen)
== END | disposition home or self-care (01) ==
LOC: LABPAT 12:06
PROVIDERS: ATTEND Orthopaedic Surgery
DX: Z01.818 Encounter for other preprocedural examination (principal)
CPT/HCPCS: 80053; 81001; 85027; 85610; 85730; 87070; 93005

== ENCOUNTER 2022-06-03 05:38 | Day surgery (SDC) | payer MEDICARE ==
[~2022-06-03 05:38] MED LIST: ACETAMINOPHEN TAB 500 MG TAB PO PRN; GABAPENTIN 300 MG CAP PO PRN; MELOXICAM 7.5 MG TAB PO PRN; TRANEXAMIC ACID IN NACL,ISO-OS 1,000 MG in SALINE 1 100ML.BAG IVPB PRN
[2022-06-03] MEDS ORDERED: LIDOCAINE 1% (10MG/ML) FOR IV START INTRADERMA PRN (05:46)
[2022-06-03] MEDS ORDERED: DEXAMETHASONE SOD PHOSPHATE 4 MG/ML 1 ML VIAL IV ONE (05:46)
[2022-06-03] MEDS ORDERED: ONDANSETRON 4 MG/2 ML VIAL IVP ONE ×2 (05:46→09:12)
[2022-06-03] MEDS ORDERED: MIDAZOLAM 2 MG/2 ML VIAL IV PRN (05:46)
[2022-06-03] MEDS: LACTATED RINGERS 1,000 ML IV SCH (05:55)
[2022-06-03 06:42] LABS: Glucose,Whole Blood 146 mg/dL (70-110)
[2022-06-03] MEDS ORDERED: PROPOFOL 10 MG/ML 20 ML VIAL IV ONE (06:50)
[2022-06-03] MEDS ORDERED: DEXAMETHASONE SOD PHOSPHATE 4 MG/ML 1 ML VIAL ONE (06:50)
[2022-06-03] MEDS ORDERED: MIDAZOLAM 2 MG/2 ML VIAL ONE (06:50)
[2022-06-03] MEDS ORDERED: ROPIVACAINE 5 MG/ML 30 ML VIAL ONE (06:50)
[2022-06-03] MEDS ORDERED: fentaNYL (PF) 50 MCG/ML 2 ML AMP ONE (06:50)
[2022-06-03] MEDS ORDERED: TRANEXAMIC ACID IN NACL,ISO-OS 1,000 MG/100 ML BAG ONE (06:50)
[2022-06-03] MEDS ORDERED: HYDROmorphone 0.5 MG/0.5 ML SYRINGE IVP PRN ×3 (07:00→07:10)
[2022-06-03] MEDS ORDERED: fentaNYL (PF) 50 MCG/ML 2 ML AMP IVP PRN (07:00)
[2022-06-03] MEDS ORDERED: METOCLOPRAMIDE 5 MG/ML 2 ML VIAL IVP PRN (07:00)
[2022-06-03] MEDS ORDERED: ceFAZolin 1,000 MG in SODIUM CHLORIDE 0.9% 1,000 ML IRRIGATION ONE (07:09)
[2022-06-03] MEDS ORDERED: NA PHOS,M-B/NA PHOS,DI-BA 133 ML ENEMA RECTAL PRN (07:10)
[2022-06-03] MEDS ORDERED: bisacodyL 10 MG SUPP RECTAL PRN (07:10)
[2022-06-03] MEDS ORDERED: NALOXONE 0.4 MG/ML 1 ML VIAL IV PRN (07:10)
[2022-06-03] MEDS ORDERED: MAGNESIUM HYDROXIDE 2,400 MG/10 ML CUP PO PRN (07:10)
[2022-06-03] MEDS ORDERED: ONDANSETRON 4 MG/2 ML VIAL IVP PRN (07:10)
[2022-06-03] MEDS ORDERED: HYDROcodone/APAP 7.5-325MG 1 EACH TAB PO PRN (07:11)
--- NOTE | 2022-06-03 08:16 | P.ANPRN ---
Procedure Note - Anesthesia - Nerve Block Performed Left Adductor Canal Infusion Date of Procedure: 06/03/22 Procedure Start Time: 06:47 Procedure Stop Time: 06:52 Location of Patient: PreOp Indication: Acute Post-Operative Pain, Requested by Surgeon Sedation Type: Sedate with meaningful contact maintained Preparation: Sterile Prep Position: Supine Catheter: Indwelling Needle Types: On-Q Needle Gauge: 21 Ultrasound used to visualize needle placement: Yes Ultrasound used to observe medication spread: Yes Injectate: 0.5% Ropivacaine (see comment for volume) (15 mls) Blood Aspirated: No Pain Paresthesia on Injection Noted: No Resistance on Injection: Normal Image Stored and Saved: Yes Events: Uneventful and Well Tolerated
--- NOTE | 2022-06-03 08:17 | P.ANPRN ---
Procedure Note - Anesthesia - Nerve Block Performed Left Siva Single Date of Procedure: 06/03/22 Procedure Start Time: 06:53 Procedure Stop Time: 06:58 Location of Patient: PreOp Indication: Requested by Surgeon Sedation Type: Sedate with meaningful contact maintained Preparation: Sterile Prep Position: Supine Catheter: None Needle Types: Pajunk Needle Gauge: 21 Ultrasound used to visualize needle placement: Yes Ultrasound used to observe medication spread: Yes Injectate: 0.5% Ropivacaine (see comment for volume) (15 mls, Decadron 10 mgs) Blood Aspirated: No Pain Paresthesia on Injection Noted: No Resistance on Injection: Normal Image Stored and Saved: Yes Events: Uneventful and Well Tolerated
--- NOTE | 2022-06-03 08:24 | P.OP ---
Date of Procedure: 06/03/22 Preoperative Diagnosis: Severe osteoarthritis left knee Postoperative Diagnosis: Severe osteoarthritis left knee Procedure(s) Performed: Left total knee arthroplasty Implants: [employer] Journey II CR Oxinium cruciate retaining femoral component size 5, left [employer] Journey nonporous tibial baseplate size 4, left [employer] Journey II, XLPE Deep Dished articular insert, size 9 mm, Size 3- 4, left [employer] Journey Tierney II resurfacing patellar component, oval, 29 mm All components were cemented using Palacos R bone cement The articulation is Oxinium on polyethylene Anesthesia: spinal Surgeon: Cody Khan Aircraft Parts Assembler #1: Sera Kramer Estimated Blood Loss (ml): 30 Pathology: other (Bone and cartilage) Condition: stable Disposition: PACU Indications for Procedure: The patient's knee is end-stage, and conservative management has failed. The operation of knee replacement has been discussed at length in the office, as well as potential risks and complications. These are inclusive of, but not limited to: Infection, bleeding, scarring, discomfort, stiffness, blood vessel and nerve damage, need for further surgery, failure to relieve symptoms, persistence, recurrence, or worsening of problems, loosening, dislocation, wear, blood clot, pulmonary embolism, , gait dysfunction, stiffness, and other risks as discussed in the office. Patient elects to proceed and the consent f orm has been signed. Operative Findings: The operative findings are consistent with severe osteoarthritis the left knee Description of Procedure: Patient was seen in the preoperative area and the consent was reviewed and the operative site was marked with a skin marker. The patient verified the procedure and the operative site. An adductor canal pain catheter and an IPACK block were placed by anesthesia in the preoperative area. The patient was then brought to the operating room and positioned on the operating room table in the supine position. Preoperative antibiotics and a gram of transexamic acid were given intravenously. A spinal anesthetic was administered by the anesthesia department. Care was taken to make sure that all pressure points were adequately padded. A tourniquet was placed on the upper thigh and the lower extremity was prepped with ChloraPrep and draped in usual sterile fashion. A universal timeout was then performed which confirmed the patient's name, surgical site, ALLERGIES, and consent. The lower extremity was then exsanguinated and tourniquet was inflated to 250 mmHg. A standard anterior midline approach to the knee was performed. The skin and subcutaneous tissue were sharply dissected down to the patellar tendon. A medial parapatellar arthrotomy was then performed. The knee was then extended, the patellar was everted, and the knee was flexed. The infra-patellar fat pad was removed in order to enhance exposure. The anterior horns of both menisci were excised, and a release was performed to the posterior medial aspect of the knee. On gross visual inspection, there was complete loss of articular cartilage in the medial and patellofemoral joint spaces. There was also significant cartilage damage in the lateral compartment. There were multiple periarticular osteophytes globally about the knee which were then removed with a Ronguer. The femoral canal was then opened with the 9.5 mm intramedullary drill. The 8 mm intramedullary pierce was then inserted into the femoral canal with the distal femoral cutting guide set for 5 of valgus. The distal femoral cutting block was then pinned in place. The intramedullary pierce was then removed, and the distal femur was then cut. The cutting block was then removed and the cut was checked for symmetry. The resected bone was then measured to confirm the appropriate distal femoral resection. Next, the sizing guide was then placed and set for 3 external rotation based off of the epicondylar axis and Cranford's line. Pins were then placed and the drill holes, and the femur was sized with the sizing stylus. The pins were then removed, and the sizing guide was then removed. The spikes of the appropriate size femoral block was then placed into the predrilled holes, and malleted into place. Two 45 mm pins were then placed into the fixation holes on the cutting block. An shanita wing was then used to ensure there would be no notching with the anterior cut. The anterior condyles were cut without notching. The anterior chord cut was then performed, followed by the posterior cut, posterior chamfer cut, and the anter ior chamfer cut. The collateral ligaments were protected during the entire process. The cutting block was then removed. Any remaining bone and osteophytes were removed from the femur with a Ronguer. Attention was then directed to the tibia. The remaining ACL was removed with a Ronguer, and the tibia was then gently subluxed forward with a large bent knee retractor. Any remaining menisci were excised. The posterior lateral corner was cauterized in order to coagulate the lateral geniculate artery. The extra medullary tibial cutting guide was then placed, set for the appropriate rotation, slope, and depth of resection. The proximal tibia cutting guide was then pinned in place. Proximal tibia was then cut and sized. A curved osteotome was then used to remove any posterior osteophytes from the distal femur. The femoral trial was placed. A narrow saw blade was then used to remove the anterior intracondylar femoral bone. The CR notch trial was then placed. The tibial trial was placed with the appropriate-sized insert. The knee was able to fully extend and flex to 130 and was stable throughout all range of motion. The knee was then extended and the patella was everted. Patella was then measured, and then using an osteotomy guide, the patella was cut at the appropriate level. The patellar component was sized. The patellar drill guide was placed and the patella was drilled. The patella trial was then placed. The knee was then taken through range of motion with the patella trial and the patella tracked normally using the no thumbs technique. The patella trial was then removed. The knee was then flexed and lug holes were drilled through the femoral trial and the femoral trial was then removed. The tibial was then re- exposed, and the tibial broach guide was then pinned in place after it was set for the appropriate rotation to allow for the most coverage without overhang. The tibia was then reamed and broached. The femoral canal was plugged with autologous bone. The cut surfaces of bone were then irrigated with pulsatile lavage. The knee was also irrigated with Irrisept solution. The components were then opened, the cement was mixed. Cement was placed on the backside of the femoral, tibial, and patellar components. Cement was then applied to the tibial surface and pressurized into the surface using finger pressurization technique. The tibial component was then applied and excess cement was removed after it was impacted securely noted to be flush with the cut surface. In similar fashion, the cement was applied to the cut femoral surface, pressurized and using finger pressurization the component was impacted in place. Excess cement was removed. The polyethylene spacer was then implanted and locked into position. Patellar component was then applied in a similar technique and the patellar clamp was used to hold patella in place while the cement hardened. The knee was held in full extension while the cement hardened. Once the cement had fully hardened, the knee was reinspected. Any other cement extrusion was removed the final range of motion testing showed range of motion from 0-130 with excellent stability, both medial and laterally and appropriate alignment of the leg. Patella tracked normally. After the cemented hardened, the tourniquet was released and hemostasis was obtained. A second gram of transexamic acid was given intravenously. The knee was again irrigated. The knee was again taken through range of motion and found to be stable throughout all range of motion of 0-130, and the patella tracked normally. The fascia was then closed with 0 Vicryl followed by #2 strata fix suture. The subcutaneous tissue was closed with 3-0 Vicryl and 3-0 strata fix. Exofin glue was used for the skin and placed with the knee in flexion. After the glue had dried, and Optafoam silver impregnated dressing was applied. A lightly compressive dressing was applied using web roll and Kalin wrap. Patient was then transferred to the stretcher and taken to recovery room in stable condition. Sponge and needle counts were correct. The health assistant JITENDRA Dumont was required due the complexity surgery and the need for a skilled manager surgical. She assisted in positioning, draping, retraction, and closure of the wound.
[2022-06-03] MEDS ORDERED: ROPIVACAINE 1,100 MG, SODIUM CHLORIDE 0.9% 500 ML 330 ML, EMPTY PAIN BALL 1 EACH MISCELLANE PRN ×4 (09:09→10:11)
--- NOTE | 2022-06-03 09:25 | XR ---
EXAMINATION TYPE: XR knee limited LT DATE OF EXAM: 06/03/2022 CLINICAL HISTORY: Left knee pain and arthritis status post total knee replacement. TECHNIQUE: Portable AP and crosstable lateral views of the left knee are obtained immediately postop eratively. COMPARISON: None FINDINGS: Metallic hardware from total left knee arthroplasty is seen and appears satisfactory in al ignment and position. There is evidence of recent surgery with diffuse subcutaneous gas and soft tis ruben swelling noted. IMPRESSION: METALLIC HARDWARE FROM TOTAL LEFT KNEE ARTHROPLASTY IS SATISFACTORY IN ALIGNMENT.
[2022-06-03] MEDS ORDERED: KETOROLAC 15 MG/ML 1 ML VIAL IVP ONE (09:29)
[2022-06-03] MEDS: HYDROmorphone 0.5 MG/0.5 ML SYRINGE IVP PRN ×2 (11:34→16:17)
[2022-06-03] MEDS ORDERED: DEXTROSE 50% SYRINGE 50 ML IVP PRN ×2 (11:39)
[2022-06-03 11:47] LABS: Glucose,Whole Blood 169 mg/dL (70-110)
[2022-06-03 11:57] LABS: Glucose,Whole Blood 300 mg/dL (70-110)
[2022-06-03] MEDS: SODIUM CHLORIDE 0.9% 1,000 ML IV SCH ×2 (12:04→23:02)
[2022-06-03] MEDS: INSULIN ASPART (NovoLOG) 100 UNIT/ML VIAL SQ SCH ×3 (12:04→22:47)
[2022-06-03] MEDS: HYDROcodone/APAP 7.5-325MG 1 EACH TAB PO PRN ×2 (15:32→21:00)
[2022-06-03 17:11] LABS: Glucose,Whole Blood 267 mg/dL (70-110)
[2022-06-03] MEDS: ASPIRIN 325 MG TAB PO SCH (20:59)
[2022-06-03] MEDS: SENNOSIDES-DOCUSATE SODIUM 1 EACH TAB PO SCH (20:59)
[2022-06-03] MEDS: FLUTICASONE 50MCG/SPRAY NASAL 16GM EA NOSTRIL SCH (20:59)
[2022-06-03] MEDS: METOPROLOL TARTRATE 25 MG TAB PO SCH (20:59)
[2022-06-03] MEDS: metFORMIN 500 MG TAB PO SCH (20:59)
[2022-06-03 21:53] LABS: Glucose,Whole Blood 344 mg/dL (70-110)
[2022-06-04] MEDS: HYDROmorphone 0.5 MG/0.5 ML SYRINGE IVP PRN ×3 (00:21→18:19)
[2022-06-04] MEDS: HYDROcodone/APAP 7.5-325MG 1 EACH TAB PO PRN ×3 (04:33→20:10)
[2022-06-04 06:06] LABS: Glucose,Whole Blood 219 mg/dL (70-110)
[2022-06-04] MEDS: INSULIN ASPART (NovoLOG) 100 UNIT/ML VIAL SQ SCH ×4 (07:02→22:03)
[2022-06-04] MEDS: LACTATED RINGERS 1,000 ML IV SCH (07:05)
--- NOTE | 2022-06-04 07:21 | P.PN ---
Progress Note - Text Progress Note Date: 06/04/22 The patient is doing well status post total knee replacement. Pain is well con trolled by a combination of local anesthetic infusion through the adductor canal catheter and oral analgesics. There are no signs of infection around the catheter skin entry site. The local anesthetic infusion will be continued as per protocol.
[2022-06-04] MEDS ORDERED: ARTIFICIAL TEARS-HYPROMELLOSE DROPS 15 ML BTL BOTH EYES PRN (08:00)
--- NOTE | 2022-06-04 08:53 | P.CONS ---
History of Present Illness - Reason for Consult Consult date: 06/04/22 Medical Management - Chief Complaint Left total knee replacement - History of Present Illness This is a 71-year-old female who underwent a left total knee arthroplasty yesterday with Dr. Khan. She had ongoing left knee pain for about the last 5 years decided to proceed with surgery. She has a past medical history of diabetes, hypertension, and GERD. She is seen this morning sitting up in bed, tolerating diet, and reports pain is well-controlled. Plan is to go to subacute rehab for a short period. Review of Systems Constitutional: Denies chills, Denies fever Cardiovascular: Denies chest pain, Denies dyspnea on exertion Respiratory: Denies cough, Denies dyspnea Gastrointestinal: Denies abdominal pain, Denies constipation, Denies diarrhea Musculoskeletal: left: knee pain Neurological: Denies headaches, Denies weakness Past Medical History Past Medical History: Diabetes Mellitus, Eye Disorder, GERD/Reflux, Hypertension, Osteoarthritis (OA), Sleep Apnea/CPAP/BIPAP, Vascular Disorder Additional Past Medical History / Comment(s): PACs, PVCs, R subclavian artery malformation, NIDDM diet controlled, arthritis in feet/thumbs, prolapsed bladder/rectum mild , past IBS years ago, rare, stress incontinence, hx UTI, acute narrow angle glaucoma bilaterally. History of Any Multi-Drug Resistant Organisms: MRSA Year Discovered:: 2017 MDRO Source:: urine Past Surgical History: Heart Catheterization, Hysterectomy, Joint Replacement, Orthopedic Surgery, Tubal Ligation Additional Past Surgical History / Comment(s): Repair R foot arthritis deformity, R ACL injury with surgery, R knee hardware as well as R foot hardware, total R hip arthroplasty, D&C,. bilateral laser eye surgery for glaucoma, bilateral cataract removals/lens implants, colonoscopy. yag procedure for scar tissue in eyes Past Anesthesia/Blood Transfusion Reactions: No Reported Reaction Additional Past Anesthesia/Blood Transfusion Reaction / Comm: daughter has n/v Past Psychological History: Depression Additional Psychological History / Comment(s): Pt resides in [place]. She retired from nursing 2 years ago and has been traveling thru out . Currently in [place] visiting her brett. She has a glucometer. Smoking Status: Former smoker Past Alcohol Use History: Rare Additional Past Alcohol Use History / Comment(s): Pt started smoking about 1968 and quit once for 35 yrs then resumed and has quit again 15 yrs ago Past Drug Use History: None Reported - Past Family History Mother Family Medical History: Chest Pain / Angina, Diabetes Mellitus, Hypertension Father Family Medical History: Musculoskeletal Disorder, Neurologic Disorder Additional Family Medical History / Comment(s): Parkinson's dx. Medications and Allergies Home Medications Medication Instructions Recorded Confirmed Type Acetaminophen [Tylenol Extra 500 mg PO HS PRN 11/09/19 06/03/22 History Strength] Aspirin 325 mg PO DAILY 11/09/19 06/03/22 History Cholecalciferol [Vitamin D3 (25 1,000 unit PO BID 11/09/19 06/03/22 History Mcg = 1000 Iu)] Cyanocobalamin/Cobamamide [Vitamin 1 tab SL DAILY 11/09/19 06/03/22 History B-12 5,000 Mcg Tab Sl] Fluticasone Nasal [place] [Flonase 1 spray EA NOSTRIL BID 11/09/19 06/03/22 History Nasal [place]] Ibuprofen [Motrin Ib] 400 mg PO DAILY PRN 11/09/19 06/03/22 History Loratadine [Claritin] 10 mg PO DAILY 11/09/19 06/03/22 History Metoprolol Tartrate [Lopressor] 25 mg PO BID 11/09/19 06/03/22 History Propylene Glycol/Peg 400/Pf 1 drop BOTH EYES BID PRN 11/09/19 06/03/22 History [Systane 0.3-0.4% Ophth [place]] Pyridoxine HCl (Vitamin B6) 100 mg PO HS 11/09/19 06/03/22 History [Vitamin B-6] Vitamin E 400 unit PO MOWEFR 11/09/19 06/03/22 History tiZANidine [Zanaflex] 1 mg PO HS 11/09/19 06/03/22 History Losartan/Hydrochlorothiazide 1 each PO DAILY 05/27/22 06/03/22 History [Hyzaar 100-25 Tablet] metFORMIN HCL [Glucophage] 1,000 mg PO DAILY 05/27/22 06/03/22 History metFORMIN HCL [Glucophage] 500 mg PO HS 05/27/22 06/03/22 History Aspirin 325 mg PO BID #60 tab 06/03/22 Rx HYDROcodone/APAP 7.5-325MG [[place] 1 - 2 tab PO Q6H PRN #32 tab 06/03/22 Rx 7.5-325] Sennosides [Senokot] 2 tab PO DAILY PRN #60 tablet 06/03/22 Rx Allergies Allergy/AdvReac Type Severity Reaction Status Date / Time clarithromycin [From Biaxin] Allergy Nausea Verified 06/03/22 05:49 Sulfa (Sulfonamide Allergy Nausea Verified 06/03/22 05:49 Antibiotics) Physical Exam Vitals: Vital Signs Temp Pulse Pulse Resp BP BP Pulse Ox 06/04/22 07:41 97.5 F L 85 15 129/73 96 06/04/22 02:00 97.6 F 71 15 113/65 98 06/03/22 19:16 98.2 F 89 16 124/61 95 06/03/22 14:51 97.8 F 91 18 166/83 96 06/03/22 09:43 67 16 149/66 97 06/03/22 09:28 66 16 149/70 99 06/03/22 09:13 61 16 136/66 100 06/03/22 08:53 98.0 F 63 16 132/69 100 Intake and Output 06/03/22 06/04/22 06/04/22 22:59 06:59 14:59 Output Total 300 300 Balance -300 -300 Output: Urine 300 300 Other: Voiding Method Toilet # Voids 2 3 - Constitutional General appearance: cooperative, no acute distress - EENT Eyes: EOMI, PERRLA - Neck Neck: no lymphadenopathy, normal ROM, no rigidity - Respiratory Respiratory: bilateral: CTA - Cardiovascular Rhythm: regular Heart sounds: normal: S1, S2 - Gastrointestinal General gastrointestinal: soft, no tenderness - Integumentary Dressing clean dry and intact to left knee Integumentary: normal, normal turgor - Psychiatric Psychiatric: A&O x's 3, appropriate affect, intact judgment & insight Results Labs: Abnormal Lab Results - Last 24 Hours (Table) 06/03/22 06/03/22 06/03/22 Range/Units 09:24 11:35 14:08 POC Glucose (mg/dL) 169 H 300 H (70-110) mg/dL Hemoglobin A1c 6.6 H (0.0-6.0) % 06/03/22 06/03/22 06/04/22 Range/Units 17:05 21:52 06:04 POC Glucose (mg/dL) 267 H 344 H 219 H (70-110) mg/dL Hemoglobin A1c (0.0-6.0) % Assessment and Plan (1) Status post total left knee replacement Current Visit: Yes Status: Acute Code(s): Z96.652 - PRESENCE OF LEFT ARTIFICIAL KNEE JOINT SNOMED Code(s): 1799645274980 (2) Diabetes mellitus Current Visit: Yes Status: Acute Code(s): E11.9 - TYPE 2 DIABETES MELLITUS WITHOUT COMPLICATIONS SNOMED Code(s): 06212971 (3) Hypertension Current Visit: Yes Status: Acute Code(s): I10 - ESSENTIAL (PRIMARY) HYPERTENSION SNOMED Code(s): 68171505 (4) GERD (gastroesophageal reflux disease) Current Visit: Yes Status: Acute Code(s): K21.9 - GASTRO-ESOPHAGEAL REFLUX DISEASE WITHOUT ESOPHAGITIS SNOMED Code(s): 486403319 (5) Arthritis Current Visit: Yes Status: Acute Code(s): M19.90 - UNSPECIFIED OSTEOARTHRITIS, UNSPECIFIED SITE SNOMED Code(s): 3485828 Plan: Home medications have been reconciled. Cleared from a medical standpoint when surgeon ready for discharge. Recommend discharge to subacute rehab for physical therapy. Patient seen and evaluated by nurse practitioner, physician in agreement with plan
--- NOTE | 2022-06-04 09:11 | P.PN ---
Subjective Progress Note Date: 06/04/22 This is a 71-year-old female who is status post left total knee arthroplasty. This is postoperative day #1 and patient is seen and evaluated at bedside today. Patient states that her pain is well-controlled and she has been working with physical therapy. Objective - Vital Signs Vital signs: Vital Signs Temp 97.5 F L 06/04/22 07:41 Pulse 85 06/04/22 07:41 Resp 15 06/04/22 07:41 BP 129/73 06/04/22 07:41 Pulse Ox 96 06/04/22 07:41 FiO2 Intake & Output 06/03/22 06/04/22 06/04/22 18:59 06:59 18:59 Intake Total 901 Output Total 330 300 Balance 571 -300 Weight 108.7 kg Intake: IV 901 Output: Urine 300 300 Estimated Blood Loss 30 Other: Voiding Method Toilet # Voids 2 3 - Exam Vital signs are stable. Patient is in no acute distress and is alert and oriented 3. Calf is soft and nontender to palpation. Dressing is clean, dry, and intact. Patient has full foot and ankle motion without pain or difficulty. Sensation intact. Neurovascular status and circulatory status are intact. - Labs Labs: Abnormal Lab Results - Last 24 Hours (Table) 06/03/22 06/03/22 06/03/22 Range/Units 09:24 11:35 14:08 POC Glucose (mg/dL) 169 H 300 H (70-110) mg/dL Hemoglobin A1c 6.6 H (0.0-6.0) % 06/03/22 06/03/22 06/04/22 Range/Units 17:05 21:52 06:04 POC Glucose (mg/dL) 267 H 344 H 219 H (70-110) mg/dL Hemoglobin A1c (0.0-6.0) % Assessment and Plan (1) Osteoarthritis of left knee Current Visit: Yes Status: Acute Code(s): M17.12 - UNILATERAL PRIMARY OSTEOARTHRITIS, LEFT KNEE SNOMED Code(s): 116018233725716 (2) S/P total knee arthroplasty Current Visit: Yes Status: Acute Code(s): Z96.659 - PRESENCE OF UNSPECIFIED ARTIFICIAL KNEE JOINT SNOMED Code(s): 6977512684460 Plan: #1 Continue with routine postoperative care and pain control, leave dressing in place for 7 days. #2 Anticoagulation with aspirin. #3 Physical therapy and CPM today. #4 Appreciate input from medicine. #5 Anticipate discharge to [facility] in the next 24-48 hours.
[2022-06-04] MEDS: CHOLECALCIFEROL 25 MCG (1000 IU) TABLET PO SCH ×2 (09:40→20:11)
[2022-06-04] MEDS: ASPIRIN 325 MG TAB PO SCH ×2 (09:40→20:11)
[2022-06-04] MEDS: metFORMIN 500 MG TAB PO SCH ×2 (09:40→20:10)
[2022-06-04] MEDS: LOSARTAN-HCTZ 50-12.5 MG 1 EACH TAB PO SCH (09:40)
[2022-06-04] MEDS: FLUTICASONE 50MCG/SPRAY NASAL 16GM EA NOSTRIL SCH ×2 (09:41→20:11)
[2022-06-04] MEDS: CYANOCOBALAMIN 500 MCG TAB PO SCH (09:41)
[2022-06-04] MEDS: METOPROLOL TARTRATE 25 MG TAB PO SCH ×2 (09:41→20:10)
[2022-06-04] MEDS: LORATADINE 10 MG TAB PO SCH (09:41)
[2022-06-04 10:52] LABS: Basophils # (A) 0.01 X 10*3/uL (0.00-0.10); Basophils % (A) 0.1 %; Eosinophils # (A) 0 X 10*3/uL (0.04-0.35); Eosinophils % (A) 0 %; HCT 32.2 % (37.2-46.3); HGB 10.4 g/dL (12.0-15.0); Immature Grans, Automated 0.5 %; Lymphocytes # (A) 0.97 X 10*3/uL (0.90-5.00); Lymphocytes % (A) 9.2 %; MCH 30.8 pg (27.0-32.0); MCHC 32.3 g/dL (32.0-37.0); MCV 95.3 fL (80.0-97.0); Mean Platelet Volume 10.7 fL (9.5-12.2); Monocytes # (A) 1.17 X 10*3/uL (0.20-1.00); NRBC Per 100 WBC 0 /100 WBCS (0.0-0.0); Neutrophils % (A) 79.2 %; Platelet Count 251 X 10*3/uL (140-440); RBC 3.38 X 10*6/uL (4.10-5.20); RDW 13.2 % (11.5-14.5)
[2022-06-04 11:53] LABS: Glucose,Whole Blood 158 mg/dL (70-110)
[2022-06-04] MEDS ORDERED: diphenhydrAMINE 25 MG CAP PO STA (12:34)
[2022-06-04 17:06] LABS: Glucose,Whole Blood 234 mg/dL (70-110)
[2022-06-04] MEDS: SODIUM CHLORIDE 0.9% 1,000 ML IV SCH (20:03)
[2022-06-04] MEDS: SENNOSIDES-DOCUSATE SODIUM 1 EACH TAB PO SCH (20:12)
[2022-06-04] MEDS ORDERED: tiZANidine 4 MG TAB PO SCH (21:00)
[2022-06-04] MEDS ORDERED: PYRIDOXINE 50 MG TAB PO SCH (21:00)
[2022-06-04 21:12] LABS: Glucose,Whole Blood 174 mg/dL (70-110)
[2022-06-04] MEDS ORDERED: MELATONIN 5 MG TABLET PO SCH (21:30)
[2022-06-04] MEDS: diphenhydrAMINE 25 MG CAP PO PRN (22:00)
[2022-06-05] MEDS: LACTATED RINGERS 1,000 ML IV SCH (00:34)
[2022-06-05] MEDS: SODIUM CHLORIDE 0.9% 1,000 ML IV SCH (00:34)
[2022-06-05] MEDS: HYDROcodone/APAP 7.5-325MG 1 EACH TAB PO PRN ×2 (02:51→08:20)
[2022-06-05 06:06] LABS: Glucose,Whole Blood 152 mg/dL (70-110)
[2022-06-05] MEDS: INSULIN ASPART (NovoLOG) 100 UNIT/ML VIAL SQ SCH ×2 (06:13→12:42)
[2022-06-05 07:47] VITALS: TEMP 98
--- NOTE | 2022-06-05 07:52 | P.DS ---
Providers Date of admission: 06/03/2022 Expected date of discharge: 06/05/22 Attending physician: Cody Khan Consults: 06/03/22 07:10 Consult Physician Routine Consulting Provider: Zhao Bills Consult Reason/Comments: medical management Do you want consulting provider notified?: Yes Primary care physician: Zhao Bills - Discharge Diagnosis(es) (1) Osteoarthritis of left knee Current Visit: Yes Status: Acute (2) Status post total left knee replacement Current Visit: Yes Status: Acute Hospital Course: This is a 71-year-old Female who was last seen with complaint of continued left knee pain. The patient has a known history of degenerative arthritis of the left knee and presents to discuss surgical options. After discussion and consideration the patient elects to proceed with total left knee arthroplasty. The patient is seen preoperatively by Primary care physician and cleared for surgery. The patient is admitted to [facility] for total left knee arthroplasty. The procedures performed without complication or sequelae. He is doing well postoperatively. Vital signs are stable at discharge. Labs are stable at discharge. the patient is ambulating well with walker with minimal assistance. The patient is discharged to inpatient rehab on postop day #2 pending medical clearance. Please see orders and refer to the med rec for accurate list of medications. Patient Condition at Discharge: Good Plan - Discharge Summary Discharge Rx Participant: No New Discharge Prescriptions: New Aspirin 325 mg PO BID #60 tab Sennosides [Senokot] 2 tab PO DAILY PRN #60 tablet PRN Reason: Constipation HYDROcodone/APAP 7.5-325MG [[place] 7.5-325] 1 - 2 tab PO Q6H PRN #32 tab PRN Reason: Pain No Action Loratadine [Claritin] 10 mg PO DAILY Ibuprofen [Motrin Ib] 400 mg PO DAILY PRN PRN Reason: Pain Vitamin E 400 unit PO MOWEFR Pyridoxine HCl (Vitamin B6) [Vitamin B-6] 100 mg PO HS Cholecalciferol [Vitamin D3 (25 Mcg = 1000 Iu)] 1,000 unit PO BID Propylene Glycol/Peg 400/Pf [Systane 0.3-0.4% Ophth [place]] 1 drop BOTH EYES BID PRN PRN Reason: Dry Eye(S) Fluticasone Nasal [place] [Flonase Nasal [place]] 1 spray EA NOSTRIL BID tiZANidine [Zanaflex] 1 mg PO HS Aspirin 325 mg PO DAILY Metoprolol Tartrate [Lopressor] 25 mg PO BID Cyanocobalamin/Cobamamide [Vitamin B-12 5,000 Mcg Tab Sl] 1 tab SL DAILY Acetaminophen [Tylenol Extra Strength] 500 mg PO HS PRN PRN Reason: Pain metFORMIN HCL [Glucophage] 500 mg PO HS Losartan/Hydrochlorothiazide [Hyzaar 100-25 Tablet] 1 each PO DAILY metFORMIN HCL [Glucophage] 1,000 mg PO DAILY Discharge Medication List Acetaminophen [Tylenol Extra Strength] 500 mg PO HS PRN 11/09/19 [History] Aspirin 325 mg PO DAILY 11/09/19 [History] Cholecalciferol [Vitamin D3 (25 Mcg = 1000 Iu)] 1,000 unit PO BID 11/09/19 [History] Cyanocobalamin/Cobamamide [Vitamin B-12 5,000 Mcg Tab Sl] 1 tab SL DAILY 11/09/19 [History] Fluticasone Nasal [place] [Flonase Nasal [place]] 1 spray EA NOSTRIL BID 11/09/19 [History] Ibuprofen [Motrin Ib] 400 mg PO DAILY PRN 11/09/19 [History] Loratadine [Claritin] 10 mg PO DAILY 11/09/19 [History] Metoprolol Tartrate [Lopressor] 25 mg PO BID 11/09/19 [History] Propylene Glycol/Peg 400/Pf [Systane 0.3-0.4% Ophth [place]] 1 drop BOTH EYES BID PRN 11/09/19 [History] Pyridoxine HCl (Vitamin B6) [Vitamin B-6] 100 mg PO HS 11/09/19 [History] Vitamin E 400 unit PO MOWEFR 11/09/19 [History] tiZANidine [Zanaflex] 1 mg PO HS 11/09/19 [History] Losartan/Hydrochlorothiazide [Hyzaar 100-25 Tablet] 1 each PO DAILY 05/27/22 [History] metFORMIN HCL [Glucophage] 1,000 mg PO DAILY 05/27/22 [History] metFORMIN HCL [Glucophage] 500 mg PO HS 05/27/22 [History] Aspirin 325 mg PO BID #60 tab 06/03/22 [Rx] HYDROcodone/APAP 7.5-325MG [[place] 7.5-325] 1 - 2 tab PO Q6H PRN #32 tab 06/03/22 [Rx] Sennosides [Senokot] 2 tab PO DAILY PRN #60 tablet 06/03/22 [Rx] Follow up Appointment(s)/Referral(s): Zhao Bills MD [Primary Care Provider] - 1 Week Cody Khan DO [Doctor of Osteopathic Medicine] - 06/14/22 11:00 am (With Sera) Activity/Diet/Wound Care/Special Instructions: Weightbearing as tolerated with a walker. CPM 5-6h daily as tolerated. Leave dressing intact. Dressing may be removed by home care nurse or by patient in 7 days. Then change dressing twice daily until follow up. May shower with initial dressing intact and after removal. If dressing become saturated, please remove. Recommend use of compression stockings daily until follow up to help prevent swelling and blood clots. May remove at night before sleeping. Please take aspirin 325mg twice daily for 30 days to prevent blood clots. Please follow up with [facility] and call with any questions or concerns, .
[2022-06-05] MEDS ORDERED: VITAMIN E (DL,TOCOPHERYL ACET) 400 UNIT (180 MG) CAP PO SCH (08:00)
[2022-06-05] MEDS: ASPIRIN 325 MG TAB PO SCH (08:19)
[2022-06-05] MEDS: CYANOCOBALAMIN 500 MCG TAB PO SCH (08:20)
[2022-06-05] MEDS: metFORMIN 500 MG TAB PO SCH (08:22)
[2022-06-05] MEDS: LOSARTAN-HCTZ 50-12.5 MG 1 EACH TAB PO SCH (08:22)
[2022-06-05] MEDS: LORATADINE 10 MG TAB PO SCH (08:23)
[2022-06-05] MEDS: METOPROLOL TARTRATE 25 MG TAB PO SCH (08:23)
[2022-06-05] MEDS: CHOLECALCIFEROL 25 MCG (1000 IU) TABLET PO SCH (08:23)
[2022-06-05] MEDS: FLUTICASONE 50MCG/SPRAY NASAL 16GM EA NOSTRIL SCH (08:28)
--- NOTE | 2022-06-05 09:16 | P.PN ---
Subjective Principal diagnosis: Arthritis. The patient is admitted status post are endoscopy. The patient is doing quite well pain is relatively controlled. No new voiding difficulties. No overt chest pain or shortness of breath. Objective - Vital Signs Vital signs: Vital Signs Temp 98.0 F 06/05/22 07:46 Pulse 76 06/05/22 07:46 Resp 16 06/05/22 07:46 BP 129/77 06/05/22 07:46 Pulse Ox 94 L 06/05/22 07:46 FiO2 Intake & Output 06/04/22 06/05/22 06/05/22 18:59 06:59 18:59 Intake Total 1080 Output Total 300 300 Balance 780 -300 Intake: Oral 1080 Output: Urine 300 300 Other: Voiding Method Toilet Toilet Toilet # Voids 3 2 2 - Constitutional General appearance: Present: obese - EENT Eyes: Absent: abnormal pupil - Neck Neck: Absent: lymphadenopathy - Respiratory Respiratory: bilateral: CTA - Cardiovascular Rhythm: regular Heart sounds: normal: S1, S2 Abnormal Heart Sounds: Absent: S3 Gallop - Gastrointestinal General gastrointestinal: Present: soft. Absent: tenderness - Integumentary Integumentary: Absent: cellulitis - Labs CBC & Chem 7: 06/04/22 05:55 Labs: Abnormal Lab Results - Last 24 Hours (Table) 06/04/22 06/04/22 06/04/22 Range/Units 05:55 11:52 17:03 WBC 10.60 H (4.50-10.00) X 10*3/uL RBC 3.38 L (4.10-5.20) X 10*6/uL Hgb 10.4 L (12.0-15.0) g/dL Hct 32.2 L (37.2-46.3) % Immature Gran # 0.05 H (0.00-0.04) X 10*3/uL Neutrophils # 8.40 H (1.80-7.70) X 10*3/uL Monocytes # 1.17 H (0.20-1.00) X 10*3/uL Eosinophils # 0 L (0.04-0.35) X 10*3/uL POC Glucose (mg/dL) 158 H 234 H (70-110) mg/dL 06/04/22 06/05/22 Range/Units 21:10 06:05 WBC (4.50-10.00) X 10*3/uL RBC (4.10-5.20) X 10*6/uL Hgb (12.0-15.0) g/dL Hct (37.2-46.3) % Immature Gran # (0.00-0.04) X 10*3/uL Neutrophils # (1.80-7.70) X 10*3/uL Monocytes # (0.20-1.00) X 10*3/uL Eosinophils # (0.04-0.35) X 10*3/uL POC Glucose (mg/dL) 174 H 152 H (70-110) mg/dL Assessment and Plan (1) Osteoarthritis of left knee Current Visit: Yes Status: Acute Code(s): M17.12 - UNILATERAL PRIMARY OSTEOARTHRITIS, LEFT KNEE SNOMED Code(s): 945919690529021 (2) S/P total knee arthroplasty Current Visit: Yes Status: Acute Code(s): Z96.659 - PRESENCE OF UNSPECIFIED ARTIFICIAL KNEE JOINT SNOMED Code(s): 4129828850175 (3) Status post total left knee replacement Current Visit: Yes Status: Acute Code(s): Z96.652 - PRESENCE OF LEFT ARTIFICIAL KNEE JOINT SNOMED Code(s): 9390381845636 Plan: The patient is medically stable. Appropriate postop protocols have been followed. Other than that, we shall continue to follow medically. Anticipate discharge once bed available at [facility] for rehab.
[2022-06-05] MEDS: HYDROmorphone 0.5 MG/0.5 ML SYRINGE IVP PRN (09:42)
[2022-06-05] MEDS: diphenhydrAMINE 25 MG CAP PO PRN (10:38)
[2022-06-05 11:30] LABS: Glucose,Whole Blood 170 mg/dL (70-110)
[2022-06-05 13:55] VITALS: BP 117/71; PULSE 79; RESP 18
== END 2022-06-05 14:58 ==
LOC: OR 05:38 → 4SSUR 08:49 → OR 06-05 14:58
PROVIDERS: ATTEND Orthopaedic Surgery
DX: M17.12 Unilateral primary osteoarthritis, left knee (principal); G89.18 Other acute postprocedural pain; Z96.652 Presence of left artificial knee joint
CPT/HCPCS: 97116; 97161; 97535 ×2; 97166; 64999; 64448; 76942; 85025; 88300; 83036; 73560; 27447; C1713; C1776; C1751; J2250; J1100; J0690 ×2; J2405; J2795; J1885; J1170 ×3